=== PATIENT | female | born 1965 ===

== ENCOUNTER 2021-10-02 07:32 | Emergency (ER) | payer OTHER ==
--- NOTE | 2021-10-02 08:07 | EDM.PDOC ---
ED HPI GENERAL MEDICAL PROBLEM - General Chief Complaint: Genitourinary Problem Stated Complaint: UTI Time Seen by Provider: 10/02/21 08:00 - History of Present Illness INITIAL COMMENTS - FREE TEXT/NARRATIVE: 56-year-old female presents the emergency room with concerns of her having a urinary tract infection. Patient has had some mild discomfort with urination no significant frequency. She is noticed urine has been darker than normal. She has been traveling and she notices that this improves when she drinks a little more water. She has not had any fevers or chills no nausea no vomiting. She has had some URI symptoms f or the last 4 to 5 days. Past medical history significant for hyperlipidemia she is takes Crestor for this she has allergic rhinitis takes Jerilyn for this and she uses trazodone to help her sleep. She has had the [place] vaccine. Patient is helping her daughter move into the area. She is from [place]. - Related Data Allergies Allergy/AdvReac Type Severity Reaction Status Date / Time minocycline Allergy Swelling Verified 10/02/21 08:19 Penicillins Allergy Swelling Verified 10/02/21 08:19 terbutaline Allergy Cannot Verified 10/02/21 08:19 Remember Home Meds: Home Meds Fexofenadine/Pseudoephedrine [Jerilyn-D 24 Hour Tablet] 1 tab PO DAILY 10/02/21 [History] traZODone 50 mg PO BEDTIME 10/02/21 [History] ED ROS GENERAL - Review of Systems Review Of Systems: See Below Constitutional: Reports: No Symptoms HEENT: Reports: Rhinitis (Mild runny nose) Respiratory: Reports: Cough (Fairly mild nonproductive) Cardiovascular: Reports: No Symptoms Endocrine: Reports: No Symptoms GI/Abdominal: Reports: No Symptoms : Reports: Flank Pain, Other (She may have noticed some blood in her urine the other day) Musculoskeletal: Reports: No Symptoms Skin: Reports: No Symptoms Neurological: Reports: No Symptoms Psychiatric: Reports: No Symptoms ED EXAM, GENERAL - Physical Exam Exam: See Below Exam Limited By: No Limitations General Appearance: Alert, No Apparent Distress Eye Exam: Bilateral Eye: Normal Inspection Ears: Normal External Exam, Normal Canal, Hearing Grossly Normal, Normal TMs Nose: Normal Inspection, Normal Mucosa, No Blood Throat/Mouth: Normal Inspection, Normal Lips, Normal Teeth, Normal Gums, Normal Oropharynx, Normal Voice, No Airway Compromise Head: Atraumatic, Normocephalic Neck: Normal Inspection, Supple, Non-Tender, Full Range of Motion. No: Lymphadenopathy (L), Lymphadenopathy (R) Respiratory/Chest: No Respiratory Distress, Lungs Clear, Normal Breath Sounds, No Accessory Muscle Use, Chest Non-Tender Cardiovascular: Regular Rate, Rhythm, No Edema, No Murmur GI/Abdominal: Normal Bowel Sounds, Soft, Non-Tender Back Exam: CVA Tenderness (L) (This is fairly mild) Neurological: Alert, Oriented, Normal Cognition Course - Vital Signs Last Recorded V/S: Last Vital Signs Temp 36.6 C 10/02/21 07:45 Pulse 88 10/02/21 07:45 Resp 16 10/02/21 07:45 BP 128/79 10/02/21 07:45 Pulse Ox 97 10/02/21 07:45 - Orders/Labs/Meds Orders: Active Orders 24 hr Category Date Time Status Communication Order [RC] ASDIRECTED Care 10/02/21 08:28 Active Labs: Laboratory Tests 10/02/21 10/02/21 Range/Units 08:15 09:50 Urine Color Yellow (Yellow) Urine Appearance Clear (Clear) Urine pH 5.5 (5.0-8.0) Ur Specific [place] 1.010 (1.005-1.030) Urine Protein Negative (Negative) Urine Glucose (UA) Negative (Negative) Urine Ketones Negative (Negative) Urine Occult Blood 1+ H (Negative) Urine Nitrite Negative (Negative) Urine Bilirubin Negative (Negative) Urine Urobilinogen 0.2 (0.2-1.0) Ur Leukocyte Esterase Negative (Negative) Urine RBC 0-5 (0-5) /hpf Urine WBC Not seen (0-5) /hpf Ur Squamous Epith Cells Not seen (0-5) /hpf Urine Bacteria Rare (FEW) /hpf Urine Mucus Rare (FEW) /hpf Influenza Type A RNA Negative (NEGATIVE) Influenza Type B RNA Negative (NEGATIVE) SARS-CoV-2 RNA (MC) Positive H (NEGATIVE) - Re-Assessments/Exams Free Text/Narrative Re-Assessment/Exam: 10/02/21 08:39 Offered laboratory evaluation time concerned she has something else going on possibly influenza so she will be screened for this. We discussed checking labs and possibly given some IV fluids because she probably is a little on the dry side but she agrees to increase her oral fluid intake and would prefer holding off on the labs. 10/02/21 11:16 Influenza screen is negative Covid is positive. She has had very mild symptoms. And believes she is actually getting better gently she is scheduled to fly home on Sunday I do not recommend this. Recommendations are 5 days of isolation after the symptoms are completely resolved. I have recommended the patient discuss the issue with the health department. Fortunately she thinks she is getting better. We discussed monoclonal antibodies and again she think she is getting better and does not need this. Departure - Departure Time of Disposition: :19 Disposition: Home, Self-Care Clinical Impression: Lab test positive for detection of COVID-19 virus, Upper respiratory tract infection due to 2019 novel coronavirus - Discharge Information Referrals: PCP,Not In Area [Primary Care Provider] - Forms: ED Department Discharge Additional Instructions: Return to the emergency room with any questions problems or worsening symptoms. Be sure and drink plenty of fluids. Your urinalysis did not suggest a infective process. However, keep an eye on this. Discuss the Covid status with the health department and see if he can get a clear recommendation as to when you can safely fly home. Current recommendations are self-isolation for 5 days after you are completely symptom- free. Sepsis Event Note (ED) - Focused Exam Vital Signs: Vital Signs Temp Pulse Resp BP Pulse Ox 10/02/21 07:45 36.6 C 88 16 128/79 97 - My Orders Last 24 Hours: My Active Orders 10/02/21 08:28 Communication Order [RC] ASDIRECTED - Assessment/Plan Last 24 Hours: My Active Orders 10/02/21 08:28 Communication Order [RC] ASDIRECTED
[2021-10-02 10:38] LABS: CORONAVIRUS COVID-19 NAA POSITIVE (NEGATIVE)
== END 2021-10-02 11:28 | disposition home or self-care (01) ==
LOC: JD.ED 07:32
DX: U07.1 COVID-19 (principal); J06.9 Acute upper respiratory infection, unspecified; R30.0 Dysuria; Z88.1 Allergy status to other antibiotic agents; Z88.0 Allergy status to penicillin
CPT/HCPCS: 0240U; 81001; 99283